=== PATIENT | male | born 1975 | race Caucasian/White ===

== ENCOUNTER 2020-08-17 07:16 | Outpatient (REF) | payer OTHER, SELFPAY ==
[2020-08-17 11:08] LABS: MANUAL DIFF FLAG NO
[2020-08-17 11:17] LABS: Basophils Absolute Auto 0.1 X10*3/uL (0.0-0.2); Eosinophils Absolute Auto 0.6 X10*3/uL (0.0-0.4); Eosinophils Percent Auto 5.9 % (0-4); Hematocrit 49.7 % (42-52); Hemoglobin 16.3 g/dl (14.0-18.0); Imm Gran Abs Auto 0.04 X10*3/uL (0.00-0.03); Imm Gran Pct Auto 0.4 % (0.0-0.4); Lymphocytes Absolute Auto 1.3 X10*3/uL (1.2-4.9); Lymphocytes Percent Auto 13.1 % (20-40); Mean Corpuscular HGB Conc 32.8 g/dl (31.0-36.0); Mean Corpuscular Hemoglobin 29.3 pg (27.0-33.0); Mean Corpuscular Volume 89.4 fL (80-98); Mean Platelet Volume 10.3 fL (9.4-12.4); Monocytes Absolute Auto 0.7 X10*3/uL (0.1-1.2); Monocytes Percent Auto 7.3 % (2-11); Neutrophils Absolute Auto 7.2 X10*3/uL (2.0-8.3); Neutrophils Percent Auto 72.3 % (45-73); Platelet Count 271 X10*3/uL (160-400); Red Blood Count 5.56 X10*6/uL (4.60-5.80); Red Cell Distribution Width 14.4 % (11.0-16.0); White Blood Count 9.9 X10*3/uL (4.8-10.8)
[2020-08-17 11:59] LABS: Creatinine Urine 249.49 mg/dL; Microalbum/Creatinine Ratio Ur 8.8 ug/mg cr
[2020-08-17 12:08] LABS: Alanine Aminotransferase 23 U/L (0-40); Albumin Level 4.1 g/dL (3.5-5.0); Alkaline Phosphatase 62 U/L (39-117); Anion Gap 14 (12-20); Aspartate Amino Transferase 15 U/L (5-37); Bilirubin Total < 0.2 mg/dL (0.0-1.0); Blood Urea Nitrogen 14 mg/dL (9-16); Calcium 8.5 mg/dL (8.4-10.2); Carbon Dioxide 27 mmol/L (22-29); Chloride 105 mmol/L (96-108); Cholesterol 96 mg/dL; Estimated Glomerular Filt Rate > 60; Glucose Fasting 125 mg/dL (60-99); HDL Cholesterol 30 mg/dL; LDL Cholesterol Calculated 55 mg/dl; Potassium 4.2 mmol/L (3.3-5.1); Sodium 142 mmol/L (135-145); Total Protein 6.3 g/dL (6.5-8.0); Triglycerides 55 mg/dL
[2020-08-17 12:09] LABS: Thyroid Stimulating Hormone 0.75 uIU/mL (0.32-4.0)
== END 2020-08-17 07:17 | disposition home or self-care (01) ==
LOC: HO.HMGCLDS 07:16
PROVIDERS: PCP Internal Medicine; Visit Provider Internal Medicine
DX: Z00.00 Encounter for general adult medical examination without abnormal findings (principal); E11.9 Type 2 diabetes mellitus without complications; E78.00 Pure hypercholesterolemia, unspecified; I10 Essential (primary) hypertension
CPT/HCPCS: 36415; 80053; 80061; 82043; 84443; 85025

== ENCOUNTER 2020-11-26 07:34 | Outpatient (REF) | payer OTHER, SELFPAY ==
[2020-11-26 11:51] LABS: Estimated Average Glucose 146 mg/dL; Hemoglobin A1c % 6.7 %
[2020-11-26 12:00] LABS: Alanine Aminotransferase 27 U/L (0-40); Albumin Level 3.9 g/dL (3.5-5.0); Alkaline Phosphatase 69 U/L (39-117); Anion Gap 13 (12-20); Aspartate Amino Transferase 16 U/L (5-37); Bilirubin Total 0.3 mg/dL (0.0-1.0); Blood Urea Nitrogen 13 mg/dL (9-16); Calcium 8.4 mg/dL (8.4-10.2); Carbon Dioxide 25 mmol/L (22-29); Chloride 106 mmol/L (96-108); Estimated Glomerular Filt Rate > 60; Glucose Random 128 mg/dL (60-115); Potassium 4.5 mmol/L (3.3-5.1); Sodium 139 mmol/L (135-145); Total Protein 6.3 g/dL (6.5-8.0)
== END 2020-11-26 07:35 | disposition home or self-care (01) ==
LOC: HO.HMGCLDS 07:34
PROVIDERS: PCP Internal Medicine; Visit Provider Internal Medicine
DX: E11.9 Type 2 diabetes mellitus without complications (principal); E78.00 Pure hypercholesterolemia, unspecified; I10 Essential (primary) hypertension
CPT/HCPCS: 36415; 80053; 83036

== ENCOUNTER 2021-03-02 07:53 | Outpatient (REF) | payer OTHER, SELFPAY ==
[2021-03-02 12:21] LABS: Estimated Average Glucose 154 mg/dL
[2021-03-02 12:23] LABS: Alanine Aminotransferase 29 U/L (0-40); Albumin Level 4.2 g/dL (3.5-5.0); Alkaline Phosphatase 68 U/L (39-117); Anion Gap 13 (12-20); Aspartate Amino Transferase 19 U/L (5-37); Bilirubin Total 0.5 mg/dL (0.0-1.0); Blood Urea Nitrogen 14 mg/dL (9-16); Calcium 8.9 mg/dL (8.4-10.2); Carbon Dioxide 23 mmol/L (22-29); Chloride 105 mmol/L (96-108); Estimated Glomerular Filt Rate > 60; Glucose Random 144 mg/dL (60-115); Potassium 4.4 mmol/L (3.3-5.1); Sodium 137 mmol/L (135-145); Total Protein 6.6 g/dL (6.5-8.0)
== END 2021-03-02 07:54 | disposition home or self-care (01) ==
LOC: HO.HMGCLDS 07:53
PROVIDERS: PCP Internal Medicine; Visit Provider Internal Medicine
DX: E11.9 Type 2 diabetes mellitus without complications (principal); E78.00 Pure hypercholesterolemia, unspecified; I10 Essential (primary) hypertension
CPT/HCPCS: 36415; 80053; 83036

== ENCOUNTER 2021-07-02 07:56 | Outpatient (REF) | payer OTHER, SELFPAY ==
[2021-07-02 11:33] LABS: Estimated Average Glucose 151 mg/dL; Hemoglobin A1c % 6.9 %
[2021-07-02 11:34] LABS: Alanine Aminotransferase 27 U/L (0-40); Alkaline Phosphatase 69 U/L (39-117); Anion Gap 12 (12-20); Aspartate Amino Transferase 21 U/L (5-37); Bilirubin Total 0.4 mg/dL (0.0-1.0); Blood Urea Nitrogen 23 mg/dL (9-16); Calcium 9.1 mg/dL (8.4-10.2); Carbon Dioxide 26 mmol/L (22-29); Chloride 105 mmol/L (96-108); Estimated Glomerular Filt Rate > 60; Glucose Random 160 mg/dL (60-115); Potassium 4.5 mmol/L (3.3-5.1); Sodium 138 mmol/L (135-145); Total Protein 6.5 g/dL (6.5-8.0)
== END 2021-07-02 07:57 | disposition home or self-care (01) ==
LOC: HO.HMGCLDS 07:56
PROVIDERS: Visit Provider Internal Medicine
DX: E11.9 Type 2 diabetes mellitus without complications (principal); I10 Essential (primary) hypertension; E78.00 Pure hypercholesterolemia, unspecified
CPT/HCPCS: 36415; 80053; 83036

== ENCOUNTER 2021-10-01 08:17 | Outpatient (REF) | payer OTHER, SELFPAY ==
[2021-10-01 11:12] LABS: MANUAL DIFF FLAG NO
[2021-10-01 11:25] LABS: Basophils Absolute Auto 0.1 X10*3/uL (0.0-0.2); Basophils Percent Auto 0.8 % (0-2); Eosinophils Absolute Auto 0.4 X10*3/uL (0.0-0.4); Eosinophils Percent Auto 3.1 % (0-4); Hematocrit 47.6 % (42.0-52.0); Hemoglobin 15.8 g/dl (14.0-18.0); Imm Gran Abs Auto 0.04 X10*3/uL (0.00-0.03); Imm Gran Pct Auto 0.3 % (0.0-0.4); Lymphocytes Absolute Auto 1.1 X10*3/uL (1.2-4.9); Lymphocytes Percent Auto 8.9 % (20-40); Mean Corpuscular HGB Conc 33.2 g/dl (31.0-36.0); Mean Corpuscular Hemoglobin 30.1 pg (27.0-33.0); Mean Corpuscular Volume 90.7 fL (80.0-98.0); Mean Platelet Volume 9.6 fL (9.4-12.4); Monocytes Absolute Auto 0.8 X10*3/uL (0.1-1.2); Monocytes Percent Auto 6.9 % (2-11); Neutrophils Absolute Auto 9.6 x10*3/uL (2.0-8.3); Platelet Count 279 X10*3/uL (160-400); Red Blood Count 5.25 X10*6/uL (4.60-5.80)
[2021-10-01 11:32] LABS: Estimated Average Glucose 157 mg/dL; Hemoglobin A1c % 7.1 %
[2021-10-01 11:51] LABS: Alanine Aminotransferase 18 U/L (0-40); Alkaline Phosphatase 64 U/L (39-117); Anion Gap 12 (12-20); Aspartate Amino Transferase 17 U/L (5-37); Bilirubin Total 0.3 mg/dL (0.0-1.0); Blood Urea Nitrogen 17 mg/dL (9-16); Calcium 9.1 mg/dL (8.4-10.2); Carbon Dioxide 27 mmol/L (22-29); Chloride 99 mmol/L (96-108); Cholesterol 135 mg/dL; Estimated Glomerular Filt Rate > 60; Glucose Fasting 115 mg/dL (60-99); HDL Cholesterol 34 mg/dL; LDL Cholesterol Calculated 91 mg/dl; Sodium 133 mmol/L (135-145); Total Protein 6.5 g/dL (6.5-8.0); Triglycerides 53 mg/dL
[2021-10-01 11:58] LABS: Creatinine Urine 85.19 mg/dL; Microalbum/Creatinine Ratio Ur 11.7 ug/mg cr
== END 2021-10-01 08:18 | disposition home or self-care (01) ==
LOC: HO.HMGCLDS 08:17
PROVIDERS: PCP Internal Medicine; Visit Provider Internal Medicine
DX: E11.9 Type 2 diabetes mellitus without complications (principal); E78.00 Pure hypercholesterolemia, unspecified; I10 Essential (primary) hypertension
CPT/HCPCS: 36415; 80053; 80061; 82043; 83036; 85025

== ENCOUNTER 2021-12-31 07:33 | Outpatient (REF) | payer OTHER, SELFPAY ==
[2021-12-31 12:18] LABS: Estimated Average Glucose 148 mg/dL; Hemoglobin A1c % 6.8 %
[2021-12-31 12:31] LABS: Alanine Aminotransferase 36 U/L (0-40); Albumin Level 4.2 g/dL (3.5-5.0); Alkaline Phosphatase 47 U/L (39-117); Anion Gap 15 (12-20); Aspartate Amino Transferase 25 U/L (5-37); Bilirubin Total 0.3 mg/dL (0.0-1.0); Blood Urea Nitrogen 13 mg/dL (9-16); Calcium 8.8 mg/dL (8.4-10.2); Carbon Dioxide 24 mmol/L (22-29); Chloride 104 mmol/L (96-108); Estimated Glomerular Filt Rate > 60; Glucose Fasting 129 mg/dL (60-99); Potassium 4.8 mmol/L (3.3-5.1); Sodium 138 mmol/L (135-145); Total Protein 6.7 g/dL (6.5-8.0)
== END 2021-12-31 07:34 | disposition home or self-care (01) ==
LOC: HO.HMGCLDS 07:33
PROVIDERS: PCP Internal Medicine; Visit Provider Internal Medicine
DX: E11.9 Type 2 diabetes mellitus without complications (principal); E78.00 Pure hypercholesterolemia, unspecified; I10 Essential (primary) hypertension
CPT/HCPCS: 36415; 80053; 83036

== ENCOUNTER 2022-04-01 08:19 | Outpatient (REF) | payer OTHER, SELFPAY ==
[2022-04-01 11:59] LABS: Estimated Average Glucose 143 mg/dL; Hemoglobin A1c % 6.6 %
[2022-04-01 12:22] LABS: Alanine Aminotransferase 25 U/L (0-40); Alkaline Phosphatase 67 U/L (39-117); Anion Gap 15 (12-20); Aspartate Amino Transferase 22 U/L (5-37); Bilirubin Total 0.3 mg/dL (0.0-1.0); Blood Urea Nitrogen 14 mg/dL (9-16); Calcium 8.9 mg/dL (8.4-10.2); Carbon Dioxide 25 mmol/L (22-29); Chloride 103 mmol/L (96-108); Cholesterol 109 mg/dL; Estimated Glomerular Filt Rate > 60; Glucose Random 132 mg/dL (60-115); HDL Cholesterol 31 mg/dL; LDL Cholesterol Calculated 64 mg/dl; Potassium 4.7 mmol/L (3.3-5.1); Sodium 138 mmol/L (135-145); Total Protein 6.4 g/dL (6.5-8.0); Triglycerides 74 mg/dL
== END 2022-04-01 08:20 | disposition home or self-care (01) ==
LOC: HO.HMGCLDS 08:19
PROVIDERS: PCP Internal Medicine; Visit Provider Internal Medicine
DX: Z00.00 Encounter for general adult medical examination without abnormal findings (principal); I10 Essential (primary) hypertension; E78.00 Pure hypercholesterolemia, unspecified; E11.649 Type 2 diabetes mellitus with hypoglycemia without coma
CPT/HCPCS: 36415; 80053; 80061; 83036

== ENCOUNTER 2022-07-01 07:48 | Outpatient (REF) | payer OTHER, SELFPAY ==
[2022-07-01 11:33] LABS: Estimated Average Glucose 157 mg/dL; Hemoglobin A1c % 7.1 %
[2022-07-01 11:55] LABS: Alanine Aminotransferase 28 U/L (0-40); Albumin Level 4.5 g/dL (3.5-5.0); Alkaline Phosphatase 68 U/L (39-117); Anion Gap 16 (12-20); Aspartate Amino Transferase 18 U/L (5-37); Bilirubin Total 0.4 mg/dL (0.0-1.0); Blood Urea Nitrogen 23 mg/dL (9-16); Calcium 9.8 mg/dL (8.4-10.2); Carbon Dioxide 28 mmol/L (22-29); Chloride 102 mmol/L (96-108); Estimated Glomerular Filt Rate > 60; Glucose Random 147 mg/dL (60-115); Potassium 4.7 mmol/L (3.3-5.1); Sodium 141 mmol/L (135-145); Total Protein 7.1 g/dL (6.5-8.0)
== END 2022-07-01 07:49 | disposition home or self-care (01) ==
LOC: HO.HMGCLDS 07:48
PROVIDERS: PCP Internal Medicine; Visit Provider Internal Medicine
DX: E11.649 Type 2 diabetes mellitus with hypoglycemia without coma (principal); E78.00 Pure hypercholesterolemia, unspecified; I10 Essential (primary) hypertension
CPT/HCPCS: 36415; 80053; 83036

== ENCOUNTER 2022-09-29 08:08 | Outpatient (REF) | payer OTHER, SELFPAY ==
[2022-09-29 12:12] LABS: Alanine Aminotransferase 22 U/L (0-40); Albumin Level 4.1 g/dL (3.5-5.0); Alkaline Phosphatase 82 U/L (39-117); Anion Gap 14 (12-20); Aspartate Amino Transferase 13 U/L (5-37); Bilirubin Total 0.5 mg/dL (0.0-1.0); Blood Urea Nitrogen 16 mg/dL (9-16); Calcium 9.4 mg/dL (8.4-10.2); Carbon Dioxide 27 mmol/L (22-29); Chloride 102 mmol/L (96-108); Estimated Glomerular Filt Rate > 60; Glucose Random 257 mg/dL (60-115); Potassium 4.7 mmol/L (3.3-5.1); Sodium 138 mmol/L (135-145); Total Protein 6.6 g/dL (6.5-8.0)
[2022-09-29 12:24] LABS: Estimated Average Glucose 235 mg/dL; Hemoglobin A1c % 9.8 %
== END 2022-09-29 08:09 | disposition home or self-care (01) ==
LOC: HO.HMGCLDS 08:08
PROVIDERS: PCP Internal Medicine; Visit Provider Internal Medicine
DX: E11.9 Type 2 diabetes mellitus without complications (principal); E78.00 Pure hypercholesterolemia, unspecified; I10 Essential (primary) hypertension
CPT/HCPCS: 36415; 80053; 83036

== ENCOUNTER 2023-01-05 07:43 | Outpatient (REF) | payer OTHER, SELFPAY ==
[2023-01-05 12:14] LABS: Estimated Average Glucose 174 mg/dL; Hemoglobin A1c % 7.7 %
[2023-01-05 12:31] LABS: Alanine Aminotransferase 32 U/L (0-40); Alkaline Phosphatase 69 U/L (39-117); Anion Gap 9 (12-20); Aspartate Amino Transferase 19 U/L (5-37); Bilirubin Total 0.3 mg/dL (0.0-1.0); Blood Urea Nitrogen 15 mg/dL (9-16); Calcium 9.2 mg/dL (8.4-10.2); Carbon Dioxide 30 mmol/L (22-29); Chloride 104 mmol/L (96-108); Cholesterol 81 mg/dL; Estimated Glomerular Filt Rate > 60; Glucose Random 155 mg/dL (60-115); HDL Cholesterol 39 mg/dL; LDL Cholesterol Calculated 33 mg/dl; Potassium 4.2 mmol/L (3.3-5.1); Sodium 139 mmol/L (135-145); Total Protein 6.6 g/dL (6.5-8.0); Triglycerides 46 mg/dL
[2023-01-05 12:36] LABS: Thyroid Stimulating Hormone 0.65 uIU/mL (0.32-4.0)
[2023-01-05 12:49] LABS: Microalbum/Creatinine Ratio Ur 26.1 ug/mg cr
== END 2023-01-05 07:44 | disposition home or self-care (01) ==
LOC: HO.HMGCLDS 07:43
PROVIDERS: PCP Internal Medicine; Visit Provider Internal Medicine
DX: E11.65 Type 2 diabetes mellitus with hyperglycemia (principal); E78.00 Pure hypercholesterolemia, unspecified; I10 Essential (primary) hypertension
CPT/HCPCS: 36415; 80053; 80061; 82043; 83036; 84443

== ENCOUNTER 2023-04-17 07:35 | Outpatient (REF) | payer OTHER, SELFPAY ==
[2023-04-17 11:49] LABS: Estimated Average Glucose 183 mg/dL
[2023-04-17 12:23] LABS: Alanine Aminotransferase 24 U/L (0-40); Albumin Level 4.2 g/dL (3.5-5.0); Alkaline Phosphatase 68 U/L (39-117); Anion Gap 9 (12-20); Aspartate Amino Transferase 16 U/L (5-37); Bilirubin Total 0.4 mg/dL (0.0-1.0); Blood Urea Nitrogen 15 mg/dL (9-16); Calcium 9.3 mg/dL (8.4-10.2); Carbon Dioxide 29 mmol/L (22-29); Chloride 103 mmol/L (96-108); Estimated Glomerular Filt Rate > 60; Glucose Random 168 mg/dL (60-115); Potassium 4.4 mmol/L (3.3-5.1); Sodium 137 mmol/L (135-145)
== END 2023-04-17 07:36 | disposition home or self-care (01) ==
LOC: HO.HMGCLDS 07:35
PROVIDERS: PCP Internal Medicine; Visit Provider Internal Medicine
DX: Z00.00 Encounter for general adult medical examination without abnormal findings (principal); E11.65 Type 2 diabetes mellitus with hyperglycemia; E78.00 Pure hypercholesterolemia, unspecified; I10 Essential (primary) hypertension; R80.8 Other proteinuria
CPT/HCPCS: 36415; 80053; 83036

== ENCOUNTER 2024-02-03 07:26 | Outpatient (REF) | payer OTHER, SELFPAY ==
[2024-02-03 08:31] LABS: Estimated Average Glucose 229 mg/dL; Hemoglobin A1c % 9.6 % (<6.0)
[2024-02-03 08:59] LABS: Alanine Aminotransferase 43 U/L (0-40); Albumin Level 4.3 g/dL (3.5-5.0); Alkaline Phosphatase 82 U/L (39-117); Anion Gap 15 (12-20); Aspartate Amino Transferase 19 U/L (5-37); Bilirubin Total 0.4 mg/dL (0.0-1.0); Blood Urea Nitrogen 10 mg/dL (9-16); Calcium 9.6 mg/dL (8.4-10.2); Carbon Dioxide 22 mmol/L (22-29); Chloride 104 mmol/L (96-108); Estimated Glomerular Filt Rate > 60; Glucose Random 243 mg/dL (60-115); Potassium 4.6 mmol/L (3.3-5.1); Sodium 136 mmol/L (135-145); Total Protein 7.2 g/dL (6.5-8.0)
== END 2024-02-03 07:27 | disposition home or self-care (01) ==
LOC: HO.LAB 07:26
PROVIDERS: PCP Internal Medicine; Visit Provider Internal Medicine
DX: E11.65 Type 2 diabetes mellitus with hyperglycemia (principal); I11.0 Hypertensive heart disease with heart failure; R80.8 Other proteinuria; Z68.27 Body mass index [BMI] 27.0-27.9, adult
CPT/HCPCS: 36415; 80053; 83036

== ENCOUNTER 2024-03-08 22:51 | Inpatient (IN) | payer OTHER, SELFPAY ==
--- NOTE | 2024-03-08 | ECG_ITS ---
Test Reason : ABD PAIN Blood Pressure : / mmHG Vent. Rate : 086 BPM Atrial Rate : 086 BPM P-R Int : 156 ms QRS Dur : 088 ms QT Int : 356 ms P-R-T Axes : 030 057 040 degrees QTc Int : 426 ms Normal sinus rhythm Normal ECG No previous ECGs available Referred By: Generic ED Physician Electronically Signed By:NYDIA CLARK MD
--- NOTE | ~2024-03-08 | US_ITS ---
EXAMINATION: US ABDOMEN LIMITED CLINICAL INFORMATION: Abdominal pain. Elevated liver function tests.. COMPARISON: CT abdomen and pelvis 03/09/2024. TECHNIQUE: Real-time imaging of the right upper quadrant abdominal viscera. FINDINGS: PANCREAS: Visualized. Traumatic head and body are normal in appearance. The visualized main pancreatic duct is normal in caliber measuring 2 mm diameter. The body and tail of pancreas are obscured from visualization by overlying bowel gas. LIVER: A 9 mm rounded hyperechoic focus is present in the posterior segment of the right lobe of the liver is most suspicious for an incidental hepatic hemangioma. On the basis of this examination, no additional imaging follow-up is warranted. Liver is otherwise normal in appearance. No intrahepatic biliary duct dilatation. GALLBLADDER: Normal appearance of the gallbladder. No cholelithiasis. Normal gallbladder wall thickness, 2 mm. No pericholecystic fluid collections. A negative sonographic Solo sign is reported by the medical technologist hematology. COMMON BILE DUCT: Normal in caliber measuring 0.4 cm in diameter. RIGHT KIDNEY: Normal. No hydronephrosis. No renal calculi or focal parenchymal lesions. The kidney measures 12.6 cm in maximum dimension. FREE FLUID: None. US/US abdomen limited IMPRESSION: Normal right upper quadrant ultrasound. No cholelithiasis. No biliary duct dilatation. The visualized pancreatic head is normal in appearance. The remainder the pancreas is obscured from visualization by overlying bowel gas. Electronically signed by: Matt Johnson MD 03/09/2024 05:57 AM EDT
--- NOTE | ~2024-03-08 | XR_ITS ---
EXAMINATION: XR CHEST CLINICAL INFORMATION: Chest pain COMPARISON: None available. TECHNIQUE: 2 views of the chest were obtained. FINDINGS: Normal appearance of the cardiomediastinal structures. No effusions or pneumothoraces. Normal pattern of pulmonary vasculature. No focal pulmonary consolidation. No skeletal abnormalities identified. XR/XR chest 2V IMPRESSION: Normal chest. Electronically signed by: Matt Johnson MD 03/09/2024 01:04 AM EDT
--- NOTE | ~2024-03-08 | CT_ITS ---
EXAMINATION: CT ABDOMEN AND PELVIS WITH CONTRAST CLINICAL INFORMATION: Pancreatitis. Rule out fluid collection. COMPARISON: None available. TECHNIQUE: Multidetector volumetric images were obtained from the superior aspect of the liver through the pubic symphysis following administration 85 mL of Omnipaque 350 intravenous contrast. Sagittal and coronal reformatted images were obtained on the technologist's workstation. Oral contrast: No This CT examination was performed using dose optimization techniques as appropriate, variously including the following: *Automated exposure control *Adjustment of mA and/or kV according to patient size (this includes techniques or standardized protocols for targeted exams where dose is matched to indication/reason for exam; i.e. extremities or head) *Use of iterative reconstruction technique DLP: 501 mGy-cm FINDINGS: LUNG BASES: The visualized lung bases are unremarkable. LIVER, GALLBLADDER, AND BILIARY TREE: The liver is normal in size, shape, and attenuation. No focal hepatic lesion or biliary ductal dilatation is present. The gallbladder is unremarkable with no evidence of radiopaque gallstones, gallbladder wall thickening, or obvious pericholecystic inflammatory changes. PANCREAS: Normal appearance of the pancreas. Borderline peripancreatic fat reticulation is noted along the head of the pancreas. No focal parenchymal lesions of the pancreas. No pancreatic calcifications. Normal appearance of the splenic vein and portal splenic confluence. No inflammatory changes noted in the root of the small bowel mesentery. No dilatation of the main pancreatic duct. SPLEEN: Unremarkable. ADRENAL GLANDS: Unremarkable. KIDNEYS AND URETERS: The kidneys are normal in size, shape, and attenuation. No hydronephrosis, hydroureter, or calculi seen. No perinephric stranding. BLADDER: Unremarkable. GASTROINTESTINAL TRACT: The appendix is not definitively visualized. Curvilinear tubular gas which may represent gas within the appendiceal lumen is noted in close proximity to the base of the cecum and would correspond to gas within a normal sized appendix. The appendix may be obscured from visualization by close approximation with adjacent additional pelvic and abdominal structures and adiposity of intra-abdominal and intrapelvic fat. No free intraperitoneal fluid or gas collections noted. ABDOMINAL WALL: No significant hernia is appreciated. LYMPH NODES: Normal. 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 CT/CT abdomen pelvis w IV con IMPRESSION: 1. Borderline peripancreatic fat reticulation adjacent to the head of the pancreas suspicious for mild acute pancreatitis. Normal appearance of the pancreas without evidence of pancreatic hemorrhage or necrosis. No pancreatic calcifications to suggest the sequela of chronic pancreatitis. No peripancreatic fluid collections. No free intraperitoneal fluid or gas collections. 2. 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 Electronically signed by: Matt Johnson MD 03/09/2024 02:34 AM EDT
[2024-03-08 22:56] VITALS: BP 134/88; PULSE 87; RESP 18; TEMP 36.1; O2SAT 97; BMI 25.7
[2024-03-08 23:37] LABS: Basophils Absolute Auto 0.1 X10*3/uL (0.0-0.2); Basophils Percent Auto 0.8 % (0-2); Eosinophils Absolute Auto 0.1 X10*3/uL (0.0-0.4); Eosinophils Percent Auto 1.2 % (0-4); Hemoglobin 18.1 g/dl (14.0-18.0); Imm Gran Abs Auto 0.05 X10*3/uL (0.00-0.03); Imm Gran Pct Auto 0.6 % (0.0-0.4); Lymphocytes Absolute Auto 0.7 X10*3/uL (1.2-4.9); Lymphocytes Percent Auto 7.7 % (20-40); MANUAL DIFF FLAG NO; Mean Corpuscular HGB Conc 34.8 g/dl (31.0-36.0); Mean Corpuscular Hemoglobin 30.4 pg (27.0-33.0); Mean Corpuscular Volume 87.4 fL (80.0-98.0); Monocytes Absolute Auto 0.6 X10*3/uL (0.1-1.2); Neutrophils Absolute Auto 7.4 x10*3/uL (2.0-8.3); Neutrophils Percent Auto 82.7 % (45-73); Platelet Count 227 X10*3/uL (160-400); Red Blood Count 5.95 X10*6/uL (4.60-5.80); Red Cell Distribution Width 14.8 % (11.0-16.0)
[2024-03-08 23:56] LABS: Troponin-I High Sensitivity 3.5 ng/L (<3.5-35.0)
[2024-03-09 00:01] LABS: Alanine Aminotransferase 73 U/L (0-40); Albumin Level 4.2 g/dL (3.5-5.0); Alkaline Phosphatase 83 U/L (39-117); Anion Gap 14 (12-20); Aspartate Amino Transferase 43 U/L (5-37); Bilirubin Total 0.4 mg/dL (0.0-1.0); Blood Urea Nitrogen 14 mg/dL (9-16); Calcium 8.5 mg/dL (8.4-10.2); Carbon Dioxide 24 mmol/L (22-29); Chloride 100 mmol/L (96-108); Creatinine Clr Calc Pharmacy 100.3; Estimated Glomerular Filt Rate > 60; Glucose Random 251 mg/dL (60-115); Lipase 633 U/L (8-78); Potassium 4.3 mmol/L (3.3-5.1); Sodium 134 mmol/L (135-145)
--- NOTE | 2024-03-09 01:07 | ED_ITS ---
HPI - Abdominal Pain General Chief Complaint: Abdominal Pain Stated Complaint: stomach and back pain Time Seen by Provider: 03/09/24 01:07 Source: patient Mode of arrival: ambulatory Limitations: no limitations History of Present Illness ED Provider: ella VINSON narrative: Patient' Complaining of pain in upper abdomen for last 1 week with poor appetite whenever patient's eats pain food noticed pain in epigastric area radiating to the back no history of pancreatitis no history of any ulcer no melena no history of gallstones Related Data Allergies Allergy/AdvReac Type Severity Reaction Status Date / Time No Known Allergies Allergy Verified 03/08/24 23:00 Review of Systems Review of Systems Yes all other systems are reviewed and are negative [facility] Past Medical History Medical History Non-insulin dependent type 2 diabetes mellitus Hypertension Mixed hyperlipidemia Social History Social History Smoked in Last 30 Days: Yes Use of substances other than those prescribed or required for medical reasons: No Advance Directives: No Advance Directives Information Provided: Yes Physical Exam ED Vital Signs: Vital Signs - 24 hr 03/08/24 22:56 Temperature 97.0 F Pulse Rate 87 Respiratory Rate 18 Blood Pressure 134/88 Pulse Oximetry 97 Oxygen Delivery Method Room Air BMI result Body Mass Index 25.7 Appearance: Alert. Oriented X3. No acute distress. Eyes: PERRLA, No Nystagmus ENT: Pharynx normal. Oral Mucosa moist Neck: Normal inspection. Neck supple. CVS: Normal heart rate and rhythm. Pulses normal. Respiratory: No respiratory distress. Equal air entry bilateral, no wheezing/rales/rhonchi Abdomen: Soft and tenderness in epigastric area Bowel sounds are present, no mass palpable, no CVA tenderness Skin: Skin warm and dry. Normal skin color. Normal skin turgor. Extremities: No lower extremity edema. No calf tenderness Neuro: Oriented X 3. No motor deficit. Medical Decision Making Medical Decision Making [facility] Narrative: Patient with the acute pancreatitis drinks alcohol occasionally on sitagliptin possibly the cause of pancreatitis patient unable to eat or drink for last 1 week will admit for pain control and hydration patient's previous triglyceride level were normal Differential Diagnosis Differential Diagnoses: The differential diagnosis associated with the presentation includes Admission/Observation Consideration of admission/observation: Escalation of care including admission/observation considered Consult Healthcare Provider Management of the patient was discussed with: Hospitalist Lab Data MDM Lab Attestation statement: I reviewed the patient's lab results. 03/09/24 04:49 03/09/24 04:49 Labs: Lab Results 03/08/24 03/09/24 Range/Units 23:32 01:35 WBC 9.0 (4.8-10.8) X10*3/uL RBC 5.95 H (4.60-5.80) X10*6/uL Hgb 18.1 H (14.0-18.0) g/dl Hct 52.0 (42.0-52.0) % MCV 87.4 (80.0-98.0) fL MCH 30.4 (27.0-33.0) pg MCHC 34.8 (31.0-36.0) g/dl RDW 14.8 (11.0-16.0) % Plt Count 227 (160-400) X10*3/uL MPV 9.0 L (9.4-12.4) fL Immature Gran % (Auto) 0.6 H (0.0-0.4) % Neut % (Auto) 82.7 H (45-73) % Lymph % (Auto) 7.7 L (20-40) % [place] % (Auto) 7.0 (2-11) % Eos % (Auto) 1.2 (0-4) % Baso % (Auto) 0.8 (0-2) % Lymph # (Auto) 0.7 L (1.2-4.9) X10*3/uL [place] # (Auto) 0.6 (0.1-1.2) X10*3/uL Eos # (Auto) 0.1 (0.0-0.4) X10*3/uL Baso # (Auto) 0.1 (0.0-0.2) X10*3/uL Abs Immat Gran (auto) 0.05 H (0.00-0.03) X10*3/uL Absolute Neuts (auto) 7.4 (2.0-8.3) x10*3/uL Absolute Nucleated RBC 0.000 (0.0-0.012) X10*3/uL Nucleated RBC % (auto) 0.0 (0.0-0.2) /100WBC Sodium 134 L (135-145) mmol/L Potassium 4.3 (3.3-5.1) mmol/L Chloride 100 (96-108) mmol/L Carbon Dioxide 24 (22-29) mmol/L Anion Gap 14 (12-20) BUN 14 (9-16) mg/dL Creatinine 1.04 (0.5-1.4) mg/dL Estim Creat Clear Calc 100.3 Estimated GFR > 60 Random Glucose 251 H (60-115) mg/dL Lactic Acid 0.9 (0.5-2.0) mmol/L Calcium 8.5 D (8.4-10.2) mg/dL Total Bilirubin 0.4 (0.0-1.0) mg/dL AST 43 H (5-37) U/L ALT 73 H (0-40) U/L Alkaline Phosphatase 83 (39-117) U/L Troponin I High Sens 3.5 (<3.5-35.0) ng/L Total Protein 7.0 (6.5-8.0) g/dL Albumin 4.2 (3.5-5.0) g/dL Triglycerides 231 H (<150) mg/dL Lipase 633 H (8-78) U/L Independent Interpretation I performed an independent interpretation of an: CT Scan Radiology Impression Discussion of test interpretation with radiology: I have reviewed the radiologist's reading. Radiologist Impression: CT/CT pelvis wo IV con IMPRESSION: No acute abnormalities identified. Status post total left hip arthroplasty. 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 Partial visualization of chronic spondylosis of the lower lumbar spine. Electronically signed by: Matt Johnson MD 03/09/2024 03:11 AM EDT RP Medications Administered Generic Name Dose Route Start Last Admin Trade Name Freq PRN Reason Stop Dose Admin Lactated Ringer's 1,000 mls @ 125 mls/hr 03/09/24 03:30 03/09/24 03:48 Lr IVCONT 125 mls/hr .Q8H NATA[place]EL Administration Insulin Human Lispro 0 unit 03/09/24 03:15 03/09/24 06:14 Insulin Lispro 100 Unit/Ml 3 Ml Vial SUBCUT Not Given 0000,0600,1200,1800 [facility] Protocol Discontinued Medications Generic Name Dose Route Start Last Admin Trade Name Edisonq PRN Reason Stop Dose Admin Famotidine 20 mg 03/09/24 01:23 03/09/24 01:33 Famotidine/Pf 20 Mg/2 Ml Vial IVPUSH 03/09/24 01:24 20 mg ONCE ONE Administration Sodium Chloride 1,000 mls @ 999 mls/hr 03/09/24 01:09 03/09/24 02:17 Ns IV 03/09/24 02:09 Infused .Q1H1M ONE Infusion Iohexol 85 ml 03/09/24 01:41 03/09/24 01:42 Iohexol 350 Mg/Ml 100 Ml Infus..Btl IV 03/09/24 01:42 85 ml ONCE ONE Administration Morphine Sulfate 4 mg 03/09/24 01:09 03/09/24 04:48 Morphine Sulfate 4 Mg/Ml Cartridge IVPUSH 03/09/24 01:10 Not Given ONCE ONE Protocol Ondansetron HCl 4 mg 03/09/24 01:09 03/09/24 01:15 Ondansetron Hcl 4 Mg/2 Ml Vial IVPUSH 03/09/24 01:10 4 mg ONCE ONE Administration Discharge Plan Discharge Clinical Impression: Pancreatitis Patient Disposition: Admitted As Inpatient
[2024-03-09] MEDS: ondansetron HCL 4 MG/2 ML VIAL IVPUSH (01:15)
[2024-03-09] MEDS: 0.9 % Sodium Chloride 1,000 ML 999 ML IV (01:18)
[2024-03-09] MEDS: Famotidine/PF 20 MG/2 ML VIAL IVPUSH (01:33)
[2024-03-09] MEDS: iohexoL 350 MG/ML 100 ML INFUS..BTL 85 ML IV (01:42)
[2024-03-09 01:50] LABS: Lactic Acid 0.9 mmol/L (0.5-2.0)
--- NOTE | 2024-03-09 02:04 | PC.NURSE ---
Pt refused morphine. Plan of care ongoing.
--- NOTE | 2024-03-09 03:01 | PM.IMHP ---
History of Present Illness Date of Service: 03/09/24 Chief Complaint: Abdominal pain This is a 48-year-old male with pertinent history of hypertension, mixed hyperlipidemia, pmo-kraaceh-nzvjubijq diabetes mellitus who presents to the emergency department for evaluation of abdominal pain. Patient states his symptoms started 1 week prior to presentation. He had sudden onset of upper abdominal pain which was initially intermittent but progressed to being constant. Worse with p.o. intake. Unable to tolerate p.o. intake due to pain and nausea. No history of similar symptoms in the past. Denies any alcohol use in the last 1 week. He started taking Januvia 1 month ago. No fever, chills, chest pain, palpitations, shortness of breath, changes in urinary or bowel habits. In the emergency department, lipase found to be elevated and imaging concerning for pancreatitis. Review of Systems Constitutional: Constitutional: Reports poor appetite Cardiovascular: Cardiovascular: Reports no additional cardiovascular complaints Respiratory: Respiratory: Reports no additional respiratory complaints Gastrointestinal: Gastrointestinal: Reports abdominal pain and Reports nausea Genitourinary: Genitourinary: Reports no additional male genitourinary complaints Musculoskeletal: Musculoskeletal: Reports no additional musculoskeletal complaints [facility] Medical History Non-insulin dependent type 2 diabetes mellitus Hypertension Mixed hyperlipidemia Pertinent family history: No family history of early CAD Social History Smoked in Last 30 Days: Yes Use of substances other than those prescribed or required for medical reasons: No Advance Directives: No Advance Directives Information Provided: Yes Meds Allergies Allergy/AdvReac Type Severity Reaction Status Date / Time No Known Allergies Allergy Verified 03/08/24 23:00 Physical Exam Vital Signs and Narrative: Vital Signs: Last Vital Signs Temp 97.0 F 03/08/24 22:56 Pulse 87 03/08/24 22:56 Resp 18 03/08/24 22:56 BP 134/88 03/08/24 22:56 Pulse Ox 97 03/08/24 22:56 O2 Del Method Room Air 03/08/24 22:56 BMI result Body Mass Index 25.7 Middle-aged male lying in bed in no distress Neck supple, no JVD Regular rate and rhythm, S1-S2 heard Regular breath sounds bilaterally, no wheezing or crackles appreciated Abdomen with epigastric tenderness, no rigidity, no rebound tenderness Patient is awake, alert and oriented to self, place, time and person ; no focal motor deficit Psych: Normal mood No pedal edema Results Labs 03/08/24 23:32 03/08/24 23:32 Labs: Laboratory Results - last 24 hr 03/08/24 03/09/24 23:32 01:35 MCV 87.4 MCH 30.4 MCHC 34.8 RDW 14.8 Plt Count 227 MPV 9.0 L Immature Gran % (Auto) 0.6 H Neut % (Auto) 82.7 H Lymph % (Auto) 7.7 L [place] % (Auto) 7.0 Eos % (Auto) 1.2 Baso % (Auto) 0.8 Lymph # (Auto) 0.7 L [place] # (Auto) 0.6 Eos # (Auto) 0.1 Baso # (Auto) 0.1 Abs Immat Gran (auto) 0.05 H Absolute Neuts (auto) 7.4 Absolute Nucleated RBC 0.000 Nucleated RBC % (auto) 0.0 Anion Gap 14 Estim Creat Clear Calc 100.3 Estimated GFR > 60 Random Glucose 251 H Lactic Acid 0.9 Calcium 8.5 D Total Bilirubin 0.4 AST 43 H ALT 73 H Alkaline Phosphatase 83 Troponin I High Sens 3.5 Total Protein 7.0 Albumin 4.2 Lipase 633 H Imaging Radiologist's Impressions: Impressions Chest X-Ray 03/08/24 23:15 IMPRESSION: Normal chest. Electronically signed by: Matt Johnson MD 03/09/2024 01:04 AM EDT [facility] Abdomen/Pelvis CT 03/09/24 01:15 IMPRESSION: 1. Borderline peripancreatic fat reticulation adjacent to the head of the pancreas suspicious for mild acute pancreatitis. Normal appearance of the pancreas without evidence of pancreatic hemorrhage or necrosis. No pancreatic calcifications to suggest the sequela of chronic pancreatitis. No peripancreatic fluid collections. No free intraperitoneal fluid or gas collections. 2. 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 Electronically signed by: Matt Johnson MD 03/09/2024 02:34 AM [facility] Assessment and Plan (1) Pancreatitis: Status: Acute Plan This is a 48-year-old male with pertinent history of hypertension, mixed hyperlipidemia, ifv-hchqchu-cxfnfhzua diabetes mellitus who presents to the emergency department for evaluation of abdominal pain. #. Acute pancreatitis: ?due to sitagliptin. Triglyceride pending. Also noted elevated transaminases, obtaining gallbladder ultrasound. Will admit patient with IV opiates p.r.n. for analgesia. Symptomatic management. Continue IV crystalloid resuscitation and keep patient NPO for bowel rest #. Dlm-tomwbdp-apylqasqx diabetes mellitus: Initiating Accu-Cheks with sliding scale insulin every 6 hours while NPO #. Mixed hyperlipidemia: Hold statin #. Hypertension: Continue home antihypertensives once able to take p.o. Med rec pending DVT prophylaxis: Lovenox Full code Admit as inpatient and will require two night minimum hospital stay for IV crystalloid resuscitation, IV opioid analgesia (as above), which is not possible in a lesser acute setting. Quality Stroke Does the patient have a stroke diagnosis?: No VTE Prior VTE?: No VTE Risk Level:: Medical - moderate - high VTE Device Contraindication: Treatment Not Indicated VTE Drug Contraindication: N/A - Med Ordered
[2024-03-09 03:25] LABS: Glucose, Whole Blood 152 mg/dL (60-115)
[2024-03-09] MEDS: Insulin Lispro 100 UNIT/ML 3 ML VIAL SUBCUT ×2 (03:47→13:27)
[2024-03-09] MEDS: Lactated Ringers 1,000 ML 125 ML IVCONT ×2 (03:48→14:26)
[2024-03-09 03:50] LABS: Triglycerides 231 mg/dL (<150)
--- NOTE | 2024-03-09 03:54 | PC.NURSE ---
Pt medicated per jul. Pt refused pain meds Plan of care ongoing.
[2024-03-09 04:52] LABS: MANUAL DIFF FLAG NO
[2024-03-09 04:55] LABS: Basophils Absolute Auto 0.1 X10*3/uL (0.0-0.2); Eosinophils Absolute Auto 0.1 X10*3/uL (0.0-0.4); Eosinophils Percent Auto 1.7 % (0-4); Hematocrit 50.4 % (42.0-52.0); Hemoglobin 17.3 g/dl (14.0-18.0); Imm Gran Abs Auto 0.05 X10*3/uL (0.00-0.03); Imm Gran Pct Auto 0.7 % (0.0-0.4); Lymphocytes Absolute Auto 0.8 X10*3/uL (1.2-4.9); Lymphocytes Percent Auto 10.9 % (20-40); Mean Corpuscular HGB Conc 34.3 g/dl (31.0-36.0); Mean Corpuscular Hemoglobin 29.9 pg (27.0-33.0); Mean Corpuscular Volume 87.2 fL (80.0-98.0); Mean Platelet Volume 9.4 fL (9.4-12.4); Monocytes Absolute Auto 0.7 X10*3/uL (0.1-1.2); Monocytes Percent Auto 9.6 % (2-11); Neutrophils Absolute Auto 5.5 x10*3/uL (2.0-8.3); Neutrophils Percent Auto 76.1 % (45-73); Platelet Count 224 X10*3/uL (160-400); Red Blood Count 5.78 X10*6/uL (4.60-5.80); White Blood Count 7.2 X10*3/uL (4.8-10.8)
[2024-03-09 05:07] LABS: Anion Gap 13 (12-20); Blood Urea Nitrogen 14 mg/dL (9-16); Calcium 8.1 mg/dL (8.4-10.2); Carbon Dioxide 23 mmol/L (22-29); Chloride 104 mmol/L (96-108); Creatinine Clr Calc Pharmacy 119.9; Estimated Glomerular Filt Rate > 60; Glucose Random 136 mg/dL (60-115); Potassium 4.3 mmol/L (3.3-5.1); Sodium 136 mmol/L (135-145)
[2024-03-09 06:12] LABS: Glucose, Whole Blood 118 mg/dL (60-115)
[2024-03-09 08:03] VITALS: BP 119/77; PULSE 83; RESP 14; TEMP 36.4; O2SAT 95
--- NOTE | 2024-03-09 09:08 | PC.NURSE ---
Report called to Mallory Tolbert RN in [place].
[2024-03-09 09:51] LABS: Glucose, Whole Blood 137 mg/dL (60-115)
--- NOTE | 2024-03-09 09:53 | PHA.MEDREC ---
Addendum entered by Aixa Cole RPh 03/09/24 10:21: Reviewed by [facility]. Original Note: Pharmacy Consult ? Medication Reconciliation Pharmacy has completed the medication reconciliation. spoke with patient to confirm. He last took all of his medications yesterday. He takes no OTC's.
[2024-03-09] MEDS: Enoxaparin Sodium 40 MG/0.4 ML SYRINGE SUBCUT (10:04)
--- NOTE | 2024-03-09 10:21 | PM.GICN ---
History of Present Illness Data of Consult Service Date: 03/09/24 Requesting physician: Wilian Nieto Primary Care Provider: Lyssa Ryan MD HPI This is a 48-year-old gentleman past medical history hypertension, type 2 diabetes, who presented to the hospital for 1 week of severe abdominal pain with nausea. Patient reports onset of pain a week ago. Describes the pain as sharp, going to his upper back. No change in bowel habits. No history of biliary colic. Reports starting Januvia 2 weeks ago. On presentation to the hospital, was noted to have stable vitals. Labs were significant for hemoconcentration with hemoglobin up to 18, baseline is around 60. Mild elevation of transaminases CT abdomen pelvis mild fatty stranding and head of the pancreas. No CBD dilation and gallstones noted on CT abdomen pelvis or ultrasound. Currently reports improvement in his abdominal pain. Thinks he may be able to tolerate some liquids. Review of Systems Review of Systems: Yes all other systems are reviewed and are negative PMFSH Past Medical History Medical History Non-insulin dependent type 2 diabetes mellitus Hypertension Mixed hyperlipidemia Social History Social History Smoked in Last 30 Days: Yes Use of substances other than those prescribed or required for medical reasons: No Advance Directives: No Advance Directives Information Provided: Yes Meds Allergies Allergy/AdvReac Type Severity Reaction Status Date / Time No Known Allergies Allergy Verified 03/08/24 23:00 Active Medications: Current Medications Acetaminophen (Acetaminophen 325 Mg Tablet) 650 mg PO Q6H PRN PRN Reason: Pain, Mild (Pain Scale 1-3), fever or headache Calcium Carbonate (Calcium Carbonate 750 Mg Tab.Chew) 750 mg PO Q4H PRN PRN Reason: Heartburn Enoxaparin Sodium (Enoxaparin Sodium 40 Mg/0.4 Ml Syringe) 40 mg SUBCUT Q24H COUNT INCLUDES THE [facility] Last Admin: 03/09/24 10:04 Dose: 40 mg Glucose (Glucose Gel 15 Gm Gel..Gram.) 15 gm PO Q15M PRN; Protocol PRN Reason: per Hypoglycemia Standing Ord. Dextrose (D10) 250 mls @ 750 mls/hr IV Q15M PRN; Protocol PRN Reason: per Hypoglycemia Standing Ord. Lactated Ringer's (Lr) 1,000 mls @ 125 mls/hr IVCONT .Q8H COUNT INCLUDES THE [facility] Last Admin: 03/09/24 03:48 Dose: 125 mls/hr Insulin Human Lispro (Insulin Lispro 100 Unit/Ml 3 Ml Vial) 0 unit SUBCUT 0000,0600,1200,1800 COUNT INCLUDES THE [facility]; Protocol Last Admin: 03/09/24 06:14 Dose: Not Given Magnesium Hydroxide (Milk Of Magnesia 30 Ml Oral.Susp) 30 ml PO DAILY PRN PRN Reason: Constipation Melatonin (Melatonin 3 Mg Tablet) 6 mg PO BEDTIME PRN PRN Reason: Insomnia Morphine Sulfate (Morphine Sulfate 4 Mg/Ml Cartridge) 4 mg IVPUSH Q4H PRN; Protocol PRN Reason: Pain, Severe (Pain Scale 7-10) Ondansetron HCl (Ondansetron Hcl 4 Mg/2 Ml Vial) 4 mg IVPUSH Q8H PRN PRN Reason: Nausea and Vomiting Sodium Chloride (0.9 % Sodium Chloride Flush 3 Ml Syringe) 3 ml IVFLUSH QSHIFT COUNT INCLUDES THE [facility] Last Admin: 03/09/24 07:31 Dose: Not Given Home Medications ?Medication ?Instructions ?Recorded ?Confirmed ?Last Taken ?Type atorvastatin 20 mg tablet 20 mg PO DAILY 03/09/24 03/09/24 03/08/24 History empagliflozin 10 mg tablet 10 mg PO DAILY 03/09/24 03/09/24 03/08/24 History (Jardiance) glipizide 10 mg tablet, extended 10 mg PO BID 03/09/24 03/09/24 03/08/24 History release 24 hr lisinopril 5 mg tablet 5 mg PO DAILY 03/09/24 03/09/24 03/08/24 History metformin 1,000 mg tablet 1,000 mg BID 03/09/24 03/09/24 03/08/24 History metoprolol succinate 50 mg 50 mg PO DAILY 03/09/24 03/09/24 03/08/24 History tablet,extended release 24 hr sitagliptin phosphate 100 mg 100 mg PO DAILY 03/09/24 03/09/24 03/08/24 History tablet (Januvia) Physical Exam Vital Signs: Vital Signs: Last Vital Signs Temp 97.6 F 03/09/24 08:03 Pulse 83 03/09/24 08:03 Resp 14 03/09/24 08:03 BP 119/77 03/09/24 08:03 Pulse Ox 95 03/09/24 08:03 O2 Del Method Room Air 03/09/24 08:03 BMI result Body Mass Index 25.7 middle-aged man facial plethora no respiratory distress Abdomen soft, nontender, nondistended No lower extremity edema Results Labs 03/09/24 04:49 03/09/24 04:49 Labs: Short CBC 03/08/24 03/09/24 Range/Units 23:32 04:49 WBC 9.0 7.2 (4.8-10.8) X10*3/uL Hgb 18.1 H 17.3 (14.0-18.0) g/dl Hct 52.0 50.4 (42.0-52.0) % Plt Count 227 224 (160-400) X10*3/uL BMP 03/08/24 03/09/24 23:32 04:49 Sodium 134 L 136 Potassium 4.3 4.3 Chloride 100 104 Carbon Dioxide 24 23 BUN 14 14 Creatinine 1.04 0.87 Calcium 8.5 D 8.1 L Liver Function 03/08/24 Range/Units 23:32 Total Bilirubin 0.4 (0.0-1.0) mg/dL AST 43 H (5-37) U/L ALT 73 H (0-40) U/L Alkaline Phosphatase 83 (39-117) U/L Albumin 4.2 (3.5-5.0) g/dL Assessment and Plan (1) Pancreatitis: Status: Acute Plan Presented with mild acute interstitial pancreatitis. Onset appears to have been 1 week ago. Patient clinically feels much better. Etiology likely drug-induced given temporarily with initiation of sitagliptin versus microlithiasis since transaminases were mildly up. Plan: -trial of clear liquid diet and advanced to low fat diet as tolerated -can discontinue fluids if able to tolerate p.o. as limited benefit more than 48 hours from onset of pancreatitis -consider MRI/MRCP as outpatient in 8-12 weeks to rule out microlithiasis versus pancreatic anomaly -discontinue sitagliptin Procedures Date of Service Date of Service: 03/09/24
--- NOTE | 2024-03-09 10:41 | HO.PM.IMPN ---
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 Physical Exam Vital Signs: Vital Signs: Last Vital Signs Temp 97.6 F 03/09/24 08:03 Pulse 83 03/09/24 08:03 Resp 14 03/09/24 08:03 BP 119/77 03/09/24 08:03 Pulse Ox 95 03/09/24 08:03 O2 Del Method Room Air 03/09/24 08:03 BMI result Body Mass Index 25.7 Const: Other: General - no acute distress, appears comfortable Cardiovascular - regular rate and rhythm, S1-S2 Lungs - normal respiratory effort, clear to auscultation bilaterally, no wheezing Abdomen - soft with mild ttp without rebound Extremities - no edema bilaterally Neuro - awake and alert, no focal deficits Objective Data Active Medications Acetaminophen (Acetaminophen 325 Mg Tablet) 650 mg PO Q6H PRN PRN Reason: Pain, Mild (Pain Scale 1-3), fever or headache Calcium Carbonate (Calcium Carbonate 750 Mg Tab.Chew) 750 mg PO Q4H PRN PRN Reason: Heartburn Enoxaparin Sodium (Enoxaparin Sodium 40 Mg/0.4 Ml Syringe) 40 mg SUBCUT Q24H [facility] Last Admin: 03/09/24 10:04 Dose: 40 mg Documented By: DONNA Glucose (Glucose Gel 15 Gm Gel..Gram.) 15 gm PO Q15M PRN; Protocol PRN Reason: per Hypoglycemia Standing Ord. Dextrose (D10) 250 mls @ 750 mls/hr IV Q15M PRN; Protocol PRN Reason: per Hypoglycemia Standing Ord. Lactated Ringer's (Lr) 1,000 mls @ 125 mls/hr IVCONT .Q8H [facility] Last Admin: 03/09/24 03:48 Dose: 125 mls/hr Documented By: AMBER Insulin Human Lispro (Insulin Lispro 100 Unit/Ml 3 Ml Vial) 0 unit SUBCUT 0000,0600,1200,1800 [facility]; Protocol Last Admin: 03/09/24 06:14 Dose: Not Given Documented By: AMBER Non-Admin Reason: No Insulin Coverage Magnesium Hydroxide (Milk Of Magnesia 30 Ml Oral.Susp) 30 ml PO DAILY PRN PRN Reason: Constipation Melatonin (Melatonin 3 Mg Tablet) 6 mg PO BEDTIME PRN PRN Reason: Insomnia Morphine Sulfate (Morphine Sulfate 4 Mg/Ml Cartridge) 4 mg IVPUSH Q4H PRN; Protocol PRN Reason: Pain, Severe (Pain Scale 7-10) Ondansetron HCl (Ondansetron Hcl 4 Mg/2 Ml Vial) 4 mg IVPUSH Q8H PRN PRN Reason: Nausea and Vomiting Sodium Chloride (0.9 % Sodium Chloride Flush 3 Ml Syringe) 3 ml IVFLUSH QSHIFT [facility] Last Admin: 03/09/24 07:31 Dose: Not Given Documented By: BRYAN Non-Admin Reason: Previously Administered Labs 03/09/24 04:49 03/09/24 04:49 Labs: Laboratory Results - last 24 hr 03/08/24 03/09/24 03/09/24 23:32 01:35 03:20 MCV 87.4 MCH 30.4 MCHC 34.8 RDW 14.8 Plt Count 227 MPV 9.0 L Immature Gran % (Auto) 0.6 H Neut % (Auto) 82.7 H Lymph % (Auto) 7.7 L [place] % (Auto) 7.0 Eos % (Auto) 1.2 Baso % (Auto) 0.8 Lymph # (Auto) 0.7 L [place] # (Auto) 0.6 Eos # (Auto) 0.1 Baso # (Auto) 0.1 Abs Immat Gran (auto) 0.05 H Absolute Neuts (auto) 7.4 Absolute Nucleated RBC 0.000 Nucleated RBC % (auto) 0.0 Anion Gap 14 Estim Creat Clear Calc 100.3 Estimated GFR > 60 POC Glucose 152 H Random Glucose 251 H Lactic Acid 0.9 Calcium 8.5 D Total Bilirubin 0.4 AST 43 H ALT 73 H Alkaline Phosphatase 83 Troponin I High Sens 3.5 Total Protein 7.0 Albumin 4.2 Triglycerides 231 H Lipase 633 H 03/09/24 03/09/24 03/09/24 04:49 06:07 09:48 MCV 87.2 MCH 29.9 MCHC 34.3 RDW 15.0 Plt Count 224 MPV 9.4 Immature Gran % (Auto) 0.7 H Neut % (Auto) 76.1 H Lymph % (Auto) 10.9 L [place] % (Auto) 9.6 Eos % (Auto) 1.7 Baso % (Auto) 1.0 Lymph # (Auto) 0.8 L [place] # (Auto) 0.7 Eos # (Auto) 0.1 Baso # (Auto) 0.1 Abs Immat Gran (auto) 0.05 H Absolute Neuts (auto) 5.5 Absolute Nucleated RBC 0.000 Nucleated RBC % (auto) 0.0 Anion Gap 13 Estim Creat Clear Calc 119.9 Estimated GFR > 60 POC Glucose 118 H 137 H Random Glucose 136 H Lactic Acid Calcium 8.1 L Total Bilirubin AST ALT Alkaline Phosphatase Troponin I High Sens Total Protein Albumin Triglycerides Lipase Assessment and Plan (1) Pancreatitis: Status: Acute Plan This is a 48-year-old male with pertinent history of hypertension, mixed hyperlipidemia, yyq-ymkmwxb-xeduehkiv diabetes mellitus who presents to the emergency department for evaluation of abdominal pain. Acute pancreatitis denies etoh use, no evidence gall stones ? related to meds -- was previously on sitagliptin + lisinopril; restarted about 2 weeks ago after being off meds for 6 months also recently started on jardiance will hold meds for now and ask for GI input continue IVF start diet and advance as tolerated Wbc-xtjnzzr-wjkupmxct diabetes mellitus sliding scale Mixed hyperlipidemia holding statin Hypertension normotensive for now; hold lisinopril as above DVT prophylaxis: Lovenox Full code reason for on going hospitalization: pancreatitis of unclear etiology, requiring IVF/IV analgesics + specialist evaluation Quality Stroke Does the patient have a stroke diagnosis?: No VTE Prior VTE?: No VTE Risk Level:: Medical - moderate - high VTE Device Contraindication: Treatment Not Indicated VTE Drug Contraindication: N/A - Med Ordered
[2024-03-09 11:54] VITALS: BP 99/65; PULSE 79; RESP 18; TEMP 36.7; O2SAT 95
[2024-03-09 11:57] LABS: Alanine Aminotransferase 63 U/L (0-40); Albumin Level 3.8 g/dL (3.5-5.0); Alkaline Phosphatase 72 U/L (39-117); Aspartate Amino Transferase 27 U/L (5-37); Bilirubin Direct 0.1 mg/dL (0.0-0.5); Bilirubin Total 0.3 mg/dL (0.0-1.0); Total Protein 6.3 g/dL (6.5-8.0)
[2024-03-09 12:41] LABS: Glucose, Whole Blood 200 mg/dL (60-115)
[2024-03-09 15:06] LABS: Glucose, Whole Blood 280 mg/dL (60-115)
--- NOTE | 2024-03-09 16:04 | PC.NURSE ---
Patient was able to eat a whole meal with no pain Dr. Nieto came to see him to discharge him.
--- NOTE | 2024-03-09 16:09 | PM.DS ---
DS: Providers Provider Date of Service: 03/09/24 Date of admission: 03/09/24 03:00 Date of discharge: 03/09/24 Primary care physician: Lyssa Ryan MD Consults: 03/09/24 09:59 Consult to Gastroenterology Routine Consulting Provider: Judith Meyers Reason for consultation: pancreatitis -- ? second to meds DS: Diagnosis Discharge Diagnosis (1) Pancreatitis: Status: Acute DS: Summary Hospital Course Hospital Course: From the admission H&P: This is a 48-year-old male with pertinent history of hypertension, mixed hyperlipidemia, eik-shorzxf-ulwckidwy diabetes mellitus who presents to the emergency department for evaluation of abdominal pain. Patient states his symptoms started 1 week prior to presentation. He had sudden onset of upper abdominal pain which was initially intermittent but progressed to being constant. Worse with p.o. intake. Unable to tolerate p.o. intake due to pain and nausea. No history of similar symptoms in the past. Denies any alcohol use in the last 1 week. He started taking Januvia 1 month ago. No fever, chills, chest pain, palpitations, shortness of breath, changes in urinary or bowel habits. In the emergency department, lipase found to be elevated and imaging concerning for pancreatitis. Hospital Course: The patient was started on intravenous fluids and bowel rest. He improved rather quickly and has not required any analgesics since his ED course. He was evaluated by Gastroenterology and was deemed likely to have medication induced pancreatitis with the likely culprit his Januvia (sitagliptin). Gastroenterology has also recommended an MRI/MRCP as an outpatient in the next few months to ensure no microlithiasis as a cause of his pancreatitis. His diet has been advanced which he is tolerating. 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 We will respect his wishes and discharge him home. Time Attestation Total time managing care of this patient today: 35 mintues. Discharge Coordination Time (in mins): 35 Quality: Safe Use of Opioids Does Pt have an Active Cancer Diagnosis on the Problem List?: No Quality: Stroke Does the patient have a stroke diagnosis?: No Physical Exam Vital Signs: Vital Signs: Last Vital Signs Temp 98.0 F 03/09/24 11:54 Pulse 79 03/09/24 11:54 Resp 18 03/09/24 11:54 BP 99/65 03/09/24 11:54 Pulse Ox 95 03/09/24 11:54 O2 Del Method Room Air 03/09/24 11:54 BMI result Body Mass Index 25.7 Const: Other: General - no acute distress, appears comfortable Cardiovascular - regular rate and rhythm, S1-S2 Lungs - normal respiratory effort, clear to auscultation bilaterally, no wheezing Abdomen - soft, nontender, no rebound or guarding Extremities - no edema bilaterally Neuro - awake and alert, no focal deficits DS: Data Data Completed and Pending Labs on day of discharge: Laboratory Results - last 24 hr 03/08/24 03/09/24 03/09/24 23:32 01:35 03:20 WBC 9.0 RBC 5.95 H Hgb 18.1 H Hct 52.0 MCV 87.4 MCH 30.4 MCHC 34.8 RDW 14.8 Plt Count 227 MPV 9.0 L Immature Gran % (Auto) 0.6 H Neut % (Auto) 82.7 H Lymph % (Auto) 7.7 L [place] % (Auto) 7.0 Eos % (Auto) 1.2 Baso % (Auto) 0.8 Lymph # (Auto) 0.7 L [place] # (Auto) 0.6 Eos # (Auto) 0.1 Baso # (Auto) 0.1 Abs Immat Gran (auto) 0.05 H Absolute Neuts (auto) 7.4 Absolute Nucleated RBC 0.000 Nucleated RBC % (auto) 0.0 Sodium 134 L Potassium 4.3 Chloride 100 Carbon Dioxide 24 Anion Gap 14 BUN 14 Creatinine 1.04 Estim Creat Clear Calc 100.3 Estimated GFR > 60 POC Glucose 152 H Random Glucose 251 H Lactic Acid 0.9 Calcium 8.5 D Total Bilirubin 0.4 Direct Bilirubin AST 43 H ALT 73 H Alkaline Phosphatase 83 Troponin I High Sens 3.5 Total Protein 7.0 Albumin 4.2 Triglycerides 231 H Lipase 633 H 03/09/24 03/09/24 03/09/24 04:49 06:07 09:48 WBC 7.2 RBC 5.78 Hgb 17.3 Hct 50.4 MCV 87.2 MCH 29.9 MCHC 34.3 RDW 15.0 Plt Count 224 MPV 9.4 Immature Gran % (Auto) 0.7 H Neut % (Auto) 76.1 H Lymph % (Auto) 10.9 L [place] % (Auto) 9.6 Eos % (Auto) 1.7 Baso % (Auto) 1.0 Lymph # (Auto) 0.8 L [place] # (Auto) 0.7 Eos # (Auto) 0.1 Baso # (Auto) 0.1 Abs Immat Gran (auto) 0.05 H Absolute Neuts (auto) 5.5 Absolute Nucleated RBC 0.000 Nucleated RBC % (auto) 0.0 Sodium 136 Potassium 4.3 Chloride 104 Carbon Dioxide 23 Anion Gap 13 BUN 14 Creatinine 0.87 Estim Creat Clear Calc 119.9 Estimated GFR > 60 POC Glucose 118 H 137 H Random Glucose 136 H Lactic Acid Calcium 8.1 L Total Bilirubin 0.3 Direct Bilirubin 0.1 AST 27 ALT 63 H Alkaline Phosphatase 72 Troponin I High Sens Total Protein 6.3 L Albumin 3.8 Triglycerides Lipase 03/09/24 03/09/24 12:27 15:02 WBC RBC Hgb Hct MCV MCH MCHC RDW Plt Count MPV Immature Gran % (Auto) Neut % (Auto) Lymph % (Auto) [place] % (Auto) Eos % (Auto) Baso % (Auto) Lymph # (Auto) [place] # (Auto) Eos # (Auto) Baso # (Auto) Abs Immat Gran (auto) Absolute Neuts (auto) Absolute Nucleated RBC Nucleated RBC % (auto) Sodium Potassium Chloride Carbon Dioxide Anion Gap BUN Creatinine Estim Creat Clear Calc Estimated GFR POC Glucose 200 H 280 H Random Glucose Lactic Acid Calcium Total Bilirubin Direct Bilirubin AST ALT Alkaline Phosphatase Troponin I High Sens Total Protein Albumin Triglycerides Lipase Discharge Plan Discharge Anticipated Discharge Date/Time: 03/09/24 16:07 Patient Disposition: Home, Self-Care Discharge Diagnosis: Pancreatitis Referrals: Lyssa Ryan MD [Primary Care Provider] - 1 Week Judith Meyers MD [Physician] - 1 Week (call for follow up) Discharge Medications: Continued atorvastatin 20 mg tablet 20 mg PO DAILY metoprolol succinate 50 mg tablet extended release 24 hr 50 mg PO DAILY glipizide 10 mg tablet extended release 24hr 10 mg PO BID metformin 1,000 mg tablet 1,000 mg BID lisinopril 5 mg tablet 5 mg PO DAILY Jardiance 10 mg tablet 10 mg PO DAILY Discontinued Januvia 100 mg tablet 100 mg PO DAILY Discharge Orders: Discharge Order (Routine); Ordered 03/09/24 Ordered By: Wilian Nieto Diet: Low fat, low cholesterol Activity on Discharge: As tolerated Stand Alone Forms: Patient Portal Discharge page Print Language: Ni[place]an Care Plan Goals: To stay healthy and out of the hospital. Health Concerns: Pancreatitis Plan of Treatment: Drink plenty of fluids, eat a low-fat diet. Stop taking Januvia (Sitagliptin). Follow-up with your primary care doctor You have been given a referral to Gastroenterology Assessment: see discharge summary
== END 2024-03-09 16:22 | disposition home or self-care (01) | DRG 282 ==
LOC: HO.ED 03-09 03:58 → HO.EDOVER 03-09 04:08
PROVIDERS: Internal Medicine; Admitting Provider Student in an Organized Health Care Education/Training Program; Emergency Provider Internal Medicine; PCP Internal Medicine; Visit Provider Family Medicine
DX: K85.30 Drug induced acute pancreatitis without necrosis or infection (principal); E11.9 Type 2 diabetes mellitus without complications; T38.3X5A Adverse effect of insulin and oral hypoglycemic [antidiabetic] drugs, initial encounter; I10 Essential (primary) hypertension; Z79.84 Long term (current) use of oral hypoglycemic drugs; Z79.899 Other long term (current) drug therapy
CPT/HCPCS: 36415; 71046; 74177; 76705; 80048; 80053; 80076; 82947; 83605; 83690; 84478; 84484; 85025; 93005; 99285; J1650; J2270; J2405; J7120; Q9967

== ENCOUNTER → 2024-03-08 23:21 | Outpatient (BNV) | payer OTHER, SELFPAY | PROVIDERS: Admitting Provider Student in an Organized Health Care Education/Training Program; Emergency Provider Internal Medicine; PCP Internal Medicine; Visit Provider Internal Medicine Cardiovascular Disease | DX: R10.9 Unspecified abdominal pain (principal) | CPT/HCPCS: 93010 ==

== ENCOUNTER → 2024-03-09 01:01 | Outpatient (BNV) | payer OTHER, SELFPAY | PROVIDERS: Emergency Provider Internal Medicine; PCP Internal Medicine; Visit Provider Student in an Organized Health Care Education/Training Program | DX: K85.90 Acute pancreatitis without necrosis or infection, unspecified (principal) | CPT/HCPCS: 99235; 99499 ==

== ENCOUNTER → 2024-03-09 03:00 | Outpatient (BNV) | payer OTHER, SELFPAY | PROVIDERS: Admitting Provider Student in an Organized Health Care Education/Training Program; Emergency Provider Internal Medicine; PCP Internal Medicine; Visit Provider Internal Medicine | DX: K85.90 Acute pancreatitis without necrosis or infection, unspecified (principal) | CPT/HCPCS: 99222 ==

== ENCOUNTER 2024-05-03 08:49 | Outpatient (REF) | payer OTHER, SELFPAY ==
[2024-05-03 10:10] LABS: MANUAL DIFF FLAG NO
[2024-05-03 10:16] LABS: Basophils Absolute Auto 0.1 X10*3/uL (0.0-0.2); Basophils Percent Auto 0.6 % (0-2); Eosinophils Absolute Auto 0.4 X10*3/uL (0.0-0.4); Eosinophils Percent Auto 2.2 % (0-4); Hematocrit 53.3 % (42.0-52.0); Hemoglobin 18.1 g/dl (14.0-18.0); Imm Gran Abs Auto 0.11 X10*3/uL (0.00-0.03); Imm Gran Pct Auto 0.6 % (0.0-0.4); Lymphocytes Absolute Auto 1.1 X10*3/uL (1.2-4.9); Lymphocytes Percent Auto 6.1 % (20-40); Mean Corpuscular Hemoglobin 30.3 pg (27.0-33.0); Mean Corpuscular Volume 89.1 fL (80.0-98.0); Monocytes Absolute Auto 1.2 X10*3/uL (0.1-1.2); Monocytes Percent Auto 6.6 % (2-11); Neutrophils Percent Auto 83.9 % (45-73); Platelet Count 293 X10*3/uL (160-400); Red Blood Count 5.98 X10*6/uL (4.60-5.80); Red Cell Distribution Width 14.8 % (11.0-16.0); White Blood Count 17.9 X10*3/uL (4.8-10.8)
[2024-05-03 11:05] LABS: Alanine Aminotransferase 98 U/L (0-40); Albumin Level 4.3 g/dL (3.5-5.0); Alkaline Phosphatase 98 U/L (39-117); Anion Gap 13 (12-20); Aspartate Amino Transferase 40 U/L (5-37); Bilirubin Total 0.4 mg/dL (0.0-1.0); Blood Urea Nitrogen 19 mg/dL (9-16); Calcium 9.6 mg/dL (8.4-10.2); Carbon Dioxide 28 mmol/L (22-29); Chloride 100 mmol/L (96-108); Cholesterol 89 mg/dL (<200); Creatinine Urine 51.95 mg/dL; Estimated Glomerular Filt Rate > 60; Glucose Random 293 mg/dL (60-115); HDL Cholesterol 33 mg/dL (>40); LDL Cholesterol Calculated 34 mg/dL (<100); Microalbum/Creatinine Ratio Ur 69.2 ug/mg cr (<30); Sodium 136 mmol/L (135-145); Total Protein 7.1 g/dL (6.5-8.0); Triglycerides 112 mg/dL (<150)
[2024-05-03 11:13] LABS: Prostate Specific Antigen 0.83 ng/mL (<0.05-4.0)
[2024-05-03 11:36] LABS: Estimated Average Glucose 295 mg/dL; Hemoglobin A1C 476.6836 umol/L; Hemoglobin A1c % 11.9 % (<6.0); Total Hemoglobin (HGBA1C) 4476.6044 umol/L
== END 2024-05-03 08:50 | disposition home or self-care (01) ==
LOC: HO.HMGCLDS 08:49
PROVIDERS: PCP Internal Medicine; Visit Provider Internal Medicine
DX: E11.65 Type 2 diabetes mellitus with hyperglycemia (principal); K85.90 Acute pancreatitis without necrosis or infection, unspecified; R74.01 Elevation of levels of liver transaminase levels; R80.8 Other proteinuria
CPT/HCPCS: 36415; 80053; 80061; 82043; 82570; 83036; 84153; 85025

== ENCOUNTER 2024-08-16 07:38 | Outpatient (REF) | payer OTHER, SELFPAY ==
[2024-08-16 10:36] LABS: Estimated Average Glucose 177 mg/dL; Hemoglobin A1c % 7.8 % (<6.0)
[2024-08-16 10:51] LABS: Alanine Aminotransferase 67 U/L (0-40); Albumin Level 4.2 g/dL (3.5-5.0); Alkaline Phosphatase 61 U/L (39-117); Anion Gap 12 (12-20); Aspartate Amino Transferase 47 U/L (5-37); Bilirubin Total 0.3 mg/dL (0.0-1.0); Blood Urea Nitrogen 16 mg/dL (9-16); Calcium 9.3 mg/dL (8.4-10.2); Carbon Dioxide 23 mmol/L (22-29); Chloride 109 mmol/L (96-108); Estimated Glomerular Filt Rate > 60; Glucose Random 131 mg/dL (60-115); Potassium 4.8 mmol/L (3.3-5.1); Sodium 139 mmol/L (135-145); Total Protein 7.4 g/dL (6.5-8.0)
== END 2024-08-16 07:39 | disposition home or self-care (01) ==
LOC: HO.HMGCLDS 07:38
PROVIDERS: PCP Internal Medicine; Visit Provider Internal Medicine
DX: E11.65 Type 2 diabetes mellitus with hyperglycemia (principal); R80.8 Other proteinuria; Z68.25 Body mass index [BMI] 25.0-25.9, adult
CPT/HCPCS: 36415; 80053; 83036

== ENCOUNTER 2024-11-19 06:54 | Outpatient (REF) | payer OTHER, SELFPAY ==
[2024-11-19 10:17] LABS: Estimated Average Glucose 194 mg/dL; Hemoglobin A1c % 8.4 % (<6.0)
[2024-11-19 10:44] LABS: Alanine Aminotransferase 73 U/L (0-40); Albumin Level 4.2 g/dL (3.5-5.0); Alkaline Phosphatase 79 U/L (39-117); Anion Gap 13 (12-20); Aspartate Amino Transferase 58 U/L (5-37); Bilirubin Total 0.4 mg/dL (0.0-1.0); Blood Urea Nitrogen 22 mg/dL (9-16); Calcium 8.9 mg/dL (8.4-10.2); Carbon Dioxide 22 mmol/L (22-29); Chloride 107 mmol/L (96-108); Estimated Glomerular Filt Rate > 60; Glucose Random 117 mg/dL (60-115); Potassium 4.3 mmol/L (3.3-5.1); Sodium 138 mmol/L (135-145); Total Protein 6.6 g/dL (6.5-8.0)
== END 2024-11-19 06:55 | disposition home or self-care (01) ==
LOC: HO.HMGCLDS 06:54
PROVIDERS: PCP Internal Medicine; Visit Provider Internal Medicine
DX: E11.65 Type 2 diabetes mellitus with hyperglycemia (principal); E78.00 Pure hypercholesterolemia, unspecified; R74.01 Elevation of levels of liver transaminase levels; I10 Essential (primary) hypertension
CPT/HCPCS: 36415; 80053; 83036

== ENCOUNTER 2025-02-19 06:11 | Outpatient (REF) | payer OTHER, SELFPAY ==
[2025-02-19 10:34] LABS: MANUAL DIFF FLAG NO
[2025-02-19 10:44] LABS: Hemoglobin 18.4 g/dl (14.0-18.0); Imm Gran Abs Auto 0.06 X10*3/uL (0.00-0.03); Imm Gran Pct Auto 0.6 % (0.0-0.4); Lymphocytes Absolute Auto 0.9 X10*3/uL (1.2-4.9); Mean Corpuscular HGB Conc 33.4 g/dl (31.0-36.0); Mean Corpuscular Hemoglobin 30.1 pg (27.0-33.0); Mean Corpuscular Volume 90.0 fL (80.0-98.0); NRBC Abs Auto 0.000 X10*3/uL (0.0-0.012); NRBC Pct Auto 0.0 /100WBC (0.0-0.2); Platelet Count 295 X10*3/uL (160-400); Red Blood Count 6.12 X10*6/uL (4.60-5.80); White Blood Count 10.5 X10*3/uL (4.8-10.8)
[2025-02-19 10:53] LABS: Hematocrit 55.1 % (42.0-52.0)
[2025-02-19 11:20] LABS: Alanine Aminotransferase 72 U/L (0-40); Albumin Level 4.1 g/dL (3.5-5.0); Alkaline Phosphatase 80 U/L (39-117); Anion Gap 11 (12-20); Aspartate Amino Transferase 54 U/L (5-37); Blood Urea Nitrogen 21 mg/dL (9-16); Calcium 8.8 mg/dL (8.4-10.2); Carbon Dioxide 23 mmol/L (22-29); Chloride 108 mmol/L (96-108); Cholesterol 79 mg/dL (<200); Estimated Glomerular Filt Rate > 60; HDL Cholesterol 32 mg/dL (>40); Potassium 4.2 mmol/L (3.3-5.1); Sodium 138 mmol/L (135-145); Total Protein 6.6 g/dL (6.5-8.0); Triglycerides 64 mg/dL (<150)
[2025-02-19 12:19] LABS: Microalbum/Creatinine Ratio Ur 51.5 ug/mg cr (<30)
== END 2025-02-19 06:12 | disposition home or self-care (01) ==
LOC: HO.HMGCLDS 06:11
PROVIDERS: PCP Internal Medicine; Visit Provider Internal Medicine
DX: E78.00 Pure hypercholesterolemia, unspecified (principal); H93.A3 Pulsatile tinnitus, bilateral; I10 Essential (primary) hypertension; N40.0 Benign prostatic hyperplasia without lower urinary tract symptoms; R74.01 Elevation of levels of liver transaminase levels
CPT/HCPCS: 36415; 80053; 80061; 82043; 82570; 83036; 84153; 85025

== ENCOUNTER → 2025-03-17 13:04 | Outpatient (BNV) | payer OTHER, SELFPAY | PROVIDERS: PCP Internal Medicine; Visit Provider Internal Medicine | DX: D75.1 Secondary polycythemia (principal); Z79.890 Hormone replacement therapy | CPT/HCPCS: 99204 ==

== ENCOUNTER 2025-03-25 13:03 | Outpatient (REF) | payer OTHER, SELFPAY | END 2025-03-25 13:04 | disposition home or self-care (01) | LOC: HO.BBR 13:03 | PROVIDERS: PCP Internal Medicine; Visit Provider Internal Medicine | DX: D75.1 Secondary polycythemia (principal) | CPT/HCPCS: 85018; 99195 ==

== ENCOUNTER 2025-04-15 08:05 | Outpatient (REF) | payer OTHER, SELFPAY | END 2025-04-15 08:06 | disposition home or self-care (01) | LOC: HO.BBR 08:05 | PROVIDERS: PCP Internal Medicine; Visit Provider Internal Medicine | DX: D75.1 Secondary polycythemia (principal) | CPT/HCPCS: 85018; 99195 ==

== ENCOUNTER 2025-05-02 09:23 | Outpatient (REF) | payer OTHER, SELFPAY ==
--- NOTE | ~2025-05-02 | US_ITS ---
EXAMINATION: US COMPLETE ABDOMEN WITH LIVER ELASTOGRAPHY CLINICAL INFORMATION: Elevated LFTs. COMPARISON: Abdominal ultrasound 03/09/2024. Correlation made with CT abdomen and pelvis 03/17/2024. TECHNIQUE: Real-time imaging of the abdominal viscera. Noninvasive ultrasound liver fibrosis assessment is performed using Siemens point quantification shear wave elastography (pSWE) with a C5-2 MHz transducer. Multiple elastography samples are obtained. FINDINGS: PANCREAS: The visualized pancreatic head and body are normal in appearance. The remainder of the pancreas is obscured from visualization by the overlying bowel gas. ABDOMINAL AORTA: No aortic aneurysm is seen. INFERIOR VENA CAVA: Visualized portions are normal. LIVER: The liver demonstrates mildly increased size, normal contour, and mildly diffusely increased echogenicity. No focal lesion or intrahepatic biliary duct dilatation. The right lobe measures 19.0 cm in length. The left lobe measures 1.4 cm in length. Portal flow is towards the liver (hepatopetal). Shear wave liver elastography median stiffness is 1.37 m/s (reference: normal median stiffness is 1.3 m/s or less). IQR/median stiffness to assess sampling precision is 0.20 (reference: good quality data set is IQR/median stiffness of 0.30 or less). This represents a quality data set. GALLBLADDER: The gallbladder is physiologically distended. There is a 3 mm mural based non-shadowing echo, likely a polyp. No evidence of stones, sludge, wall thickening or pericholecystic fluid. Negative sonographic Solo's sign. COMMON BILE DUCT: Normal in caliber measuring 0.5 cm in diameter. RIGHT KIDNEY: No hydronephrosis. No renal calculi or focal parenchymal lesions. The kidney measures 11.5 cm in maximum dimension. LEFT KIDNEY: No hydronephrosis. No renal calculi or focal parenchymal lesions. The kidney measures 11.1 cm in maximum dimension. SPLEEN: Unremarkable. The spleen measures 11.4 cm in maximum dimension. FREE FLUID: None seen. US/US abdomen comp w elastography IMPRESSION: 1. Liver demonstrates mildly increased size, and diffusely mildly increased echogenicity most likely on the basis of steatosis. No focal suspicious lesion. 2. Liver elastography: In the absence of other known clinical signs, measurements rule out compensated advanced chronic liver disease. If there are known clinical signs, further testing may be needed for confirmation. 3. There is a tiny 3 mm suspected gallbladder polyp. Gallbladder is otherwise normal. No follow-up recommended. 4. Exam is otherwise normal. REFERENCE: Society of Radiologists in Ultrasound Liver Stiffness Thresholds (2019): LIVER STIFFNESS THRESHOLDS: *Liver Stiffness equal or less than 1.3 m/s: High probability of being normal. *Liver Stiffness less than 1.7 m/s: In the absence of other known clinical signs, rules out compensated advanced chronic liver disease. *Liver Stiffness 1.7-2.1 m/s: Suggestive of compensated advanced chronic liver disease but need further test for confirmation. *Liver Stiffness over 2.1 m/s: Rules in compensated advanced chronic liver disease. *Liver Stiffness over 2.4 m/s: Suggestive of clinically significant portal hypertension. QUALITY OF DATA SET: *IQR/Median value equal or less than 0.30 implies a quality data set. *IQR/Median value over 0.30 implies a poor quality data set. SIGNIFICANT CHANGE FROM PRIOR EXAM: Significant change if liver stiffness measurement is 10% or greater from prior exam. OTHER CONSIDERATIONS: The stage of liver fibrosis may be overestimated in the setting of acute hepatitis, liver inflammation, elevated liver function tests, hepatic vascular congestion, obstructive cholestasis, non-fasting state, and infiltrative diseases such as amyloidosis and lymphoma. In some patients with NAFLD, the liver stiffness thresholds for compensated advanced chronic liver disease may be lower. In causes other than viral hepatitis and NAFLD, liver stiffness thresholds are not well established. Electronically signed by: Miguel Madsen MD 05/02/2025 10:12 AM [facility] [place]
== END 2025-05-02 09:24 | disposition home or self-care (01) ==
LOC: HO.US 09:23
PROVIDERS: PCP Internal Medicine; Visit Provider Internal Medicine
DX: R94.5 Abnormal results of liver function studies (principal)
CPT/HCPCS: 76700; 76981

== ENCOUNTER → 2025-05-02 09:35 | Outpatient (BNV) | payer OTHER, SELFPAY | PROVIDERS: PCP Internal Medicine; Visit Provider Radiology Diagnostic Radiology | DX: R94.5 Abnormal results of liver function studies (principal) | CPT/HCPCS: 76700 ==

== ENCOUNTER 2025-05-06 10:00 | Outpatient (REF) | payer OTHER, SELFPAY | END 2025-05-06 10:01 | disposition home or self-care (01) | LOC: HO.BBR 10:00 | PROVIDERS: PCP Internal Medicine; Visit Provider Internal Medicine | DX: D75.1 Secondary polycythemia (principal) | CPT/HCPCS: 85014; 85018; 99195 ==